=== PATIENT | male | born 2005 ===

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

== ENCOUNTER 2025-06-07 07:09 | Emergency (ER) | payer MEDICAID, SELFPAY ==
--- NOTE | 2025-06-07 07:11 | ED.GENADUL_ITS ---
Discharge Plan Disposition Patient Disposition: Home Discharge Details Clinical Impression: Acute asthma exacerbation, Blood pressure elevated without history of HTN Primary Care Provider: Unknown,Unknown ED Provider: Luisito Eason Home Meds and New Rx's Prescriptions: New prednisone 50 mg tablet 50 mg PO DAILY Qty: 4 0RF Rx Instructions: Please begin taking tomorrow as you have received steroids in the emergency department budesonide-formoterol 80-4.5 mcg/actuation HFA aerosol inhaler 2 puff inhalation Q12H Qty: 10.2 0RF Rx Instructions: 1-2 puffs once to twice daily for maintenance. Continued (DME) inhalational spacing device [Aerochamber MV] spacer See Dose Instructions .ROUTE .MEDSUPPLY Qty: 1 0RF Dose Instruction: As directed Rx Instructions: As directed olopatadine [Pataday Once Daily Relief] 0.2 % drops 1 drp ophthalmic (eye) DAILY PRN (Reason: itching) Qty: 2.5 1RF Rx Instructions: Please disp #2 bottles albuterol sulfate 90 mcg/actuation HFA aerosol inhaler 2 puff Inhalation QID PRN (Reason: shortness of breath or wheezing) Qty: 8.5 3RF Discharge Instructions Additional Instructions: You were seen in the emergency department for your shortness of breath. You are having an exacerbation of your asthma. Please use these inhaled medications as directed. Please also begin taking the prescription for steroids starting tomorrow. As discussed please return to the emergency department if you develop worsening chest pain shortness of breath passout or if you have any other concerns. Otherwise please follow-up with your primary care provider as needed. Stand Alone Forms: Work Release Discharge Data Discharge Date/Time-TO BE ENTERED AT DEPARTURE: 06/07/25 08:04 HPI General Date/Time Provider Initiated Documentation: 06/07/25 07:11 . HPI Narrative: MDM This is a quite well-appearing normothermic and not tachycardic 20-year-old male with acute exacerbation of his mild intermittent asthma for which he will receive nebulized beta agonist. Patient has had some chest pain however in the setting of his wheezes I am not suspicious for ACS so I did not order an ECG. Chest discomfort arrived in the setting of shortness of breath from asthma so not suspicious for pneumothorax. Equal breath sounds and no trauma so doubt pneumothorax. No fevers to suggest pneumonia so we will defer chest x-ray. No recent emesis to suggest increased risk for esophageal rupture. No rash to chest to suggest zoster. I considered PE however the patient is PERC negative so I did not send a D-dimer. Patient is not tachycardic nor hypotensive to suggest tamponade so I did not perform bedside echocardiogram. Patient's blood pressure was elevated on arrival. A recheck from patient's nurse Kathleen revealed that his home pressure was 140/90. Patient I discussed follow-up with his PCP concerning his elevated blood pressure. We also discussed that he should return to the ED if he developed worsening shortness of breath if he passed out or had any other concerns. I treated him with prednisone and refilled his inhaler. He understood his return indications and was discharged with empiric trial of expectant outpatient management. HPI This is a patient with a history of asthma presenting with difficulty breathing. The patient reports that the symptoms began 2 days ago. The primary concern is difficulty breathing, which is accompanied by an increase in coughing. The patient also experienced a mild fever on Sunday. There has been no vomiting, though the patient has been coughing up mucus. The cough is described as not severe. The patient rates the chest pain associated with breathing difficulties at a 5 out of 10. There is no history of recent falls or chest trauma. The patient reports no sore throat and no history of blood clots in the legs. The patient has a history of asthma and has brought their inhaler today. The patient has never been hospitalized overnight for asthma and has never required a breathing tube. The patient is not currently taking any other medications. The patient?s mother advised seeking medical care instead of waiting for a refill of the inhaler. Exam General: Well-appearing in no acute distress speaking in complete sentences. Sitting upright in Semi-Ward's position in no acute distress. Head: Normocephalic, atraumatic. Eye: Extraocular eye movements intact. No conjunctival injection. No scleral icterus. Ear, nose, mouth, throat: Grossly normal inspection. Normal voice, handling secretions normally. Neck: Trachea midline. Cardiovascular: Well-perfused distal extremities. Regular rate and rhythm Respiratory: Nonlabored respiration. End expiratory wheezes with prolonged expiratory phase. No tripoding. No stridor. Gastrointestinal: Nondistended abdomen. Musculoskeletal: No edema. Moving all 4 extremities spontaneously. Skin: Normal for age and race, grossly normal temperature and turgor. No acute rash. Neurologic: Alert and appropriate, no apparent acute deficits. Related Data Home Medications ?Medication ?Instructions ?Recorded ?Confirmed inhalational spacing device #1 ea 08/13/18 06/07/25 (Aerochamber MV spacer) albuterol sulfate 90 mcg/actuation 2 puff inhalation Q ID PRN 04/25/22 06/07/25 aerosol inhaler shortness of breath or wheez ing #8.5 grams olopatadine 0.2 % eye drops 1 drp ophthalmic (eye) MARCIANO LY PRN 06/06/23 06/07/25 (Pataday Once Daily Relief) itching #2.5 mL budesonide-formoterol HFA 80 2 puff inhalation Q12H #1 0.2 grams 06/07/25 mcg-4.5 mcg/actuation aerosol inhaler prednisone 50 mg tablet 50 mg PO DAILY #4 tabs 06/07 Previous Rx's ?Medication ?Instructions ?Recorded inhalational spacing device #1 ea 08/13/18 (Aerochamber MV spacer) albuterol sulfate 90 mcg/actuation 2 puff inhalation Q ID PRN 04/25/22 aerosol inhaler shortness of breath or wheez ing #8.5 grams olopatadine 0.2 % eye drops 1 drp ophthalmic (eye) MARCIANO LY PRN 06/06/23 (Pataday Once Daily Relief) itching #2.5 mL budesonide-formoterol HFA 80 2 puff inhalation Q12H #1 0.2 grams 06/07/25 mcg-4.5 mcg/actuation aerosol inhaler prednisone 50 mg tablet 50 mg PO DAILY #4 tabs 06/07 Allergies Allergy/AdvReac Type Severity Reaction Status Date / Time No Known Allergies Allergy Verified 06/07/25 07:16 General YANET: 4 PFSH All Active Problems (Updated 06/07/25 @ 07:33 by Luisito Eason MD) Blood pressure elevated without history of HTN (Acute) Acute asthma exacerbation (Acute) Mild intermittent asthma (Acute) BMI,pediatric >= 95% (Acute) Anisocoria (Chronic Unknown) he has been worked up by opthamology [place], he has had MRI as well, and I will refer him to [facility] here, wear glasses. Medical History (Updated 06/07/25 @ 07:33 by Luisito Eason MD) Vision impairment Family History (Updated 08/15/18 @ 10:57 by Laura Schneider LPN) Father Diabetes Asthma Paternal Aunt Hypertension Arthritis Maternal Grandfather Hypertension Kidney disease Paternal Grandmother Hypertension Mother Cancer Social History (Updated 08/18/19 @ 08:11 by Meseret Zayas RN) Smoking/Tobacco Use Status: Never Second Hand Exposure: No Smoking risk assessment performed?: Yes Alcohol Intake: never Drug use: Never Substance use type: does not use Pets and animals: No Do you feel safe at home: Yes Do you feel safe in your relationship?: Yes Additional Social history: Ramiro- father- 11/10/74- [facility] The[facility] [facility] Amal - mother- 10/01/67- 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
[2025-06-07 07:13] VITALS: BP 158/120; PULSE 99; RESP 20; TEMP 36.9; O2SAT 96
[2025-06-07 07:29] VITALS: BP 140/90; RESP 18; O2SAT 100
[2025-06-07] MEDS: Albuterol HFA 8 GM 60 PUFF INH IH (07:48)
[2025-06-07] MEDS: predniSONE 20 MG TAB 60 MG PO (07:49)
[2025-06-07 07:55] VITALS: RESP 18
[2025-06-07 08:00] VITALS: PULSE 91; RESP 18; TEMP 36.2; O2SAT 99
== END 2025-06-07 08:04 | disposition home or self-care (01) ==
LOC: ER 08:02
PROVIDERS: Emergency Provider Emergency Medicine
DX: J45.901 Unspecified asthma with (acute) exacerbation (principal); R03.0 Elevated blood-pressure reading, without diagnosis of hypertension
CPT/HCPCS: 99283; 99284; J7512